=== PATIENT | female | born 1995 ===

== ENCOUNTER 2022-01-04 03:08 | Emergency (ER) | payer BC, SELFPAY ==
[2022-01-04] VITALS (7 sets, daily range): BP systolic 107–119; BP diastolic 75–82; PULSE 105–124; RESP 16–18; TEMP 36.2–36.7; O2SAT 99–100
--- NOTE | 2022-01-04 03:11 | ECG_ITS ---
Measurements Intervals [place] Rate: 124 P: 71 NH: 140 QRS: 58 QRSD: 96 T: 35 QT: 303 QTc: 435 Interpretive Statements SINUS TACHYCARDIA OTHERWISE NORMAL ECG NO PREVIOUS ECG AVAILABLE FOR COMPARISON Electronically Signed On 01-04-2022 10:24:53 CDT by Bassam Frederick M.D.
--- NOTE | 2022-01-04 03:16 | ED.ARRPALP ---
HPI - Arrhythmia/Palpitations General Chief Complaint: Chest Pain Stated Complaint: Fast Heart Rate Time Seen by Provider: 01/04/22 03:15 Source: patient, family and RN notes reviewed Mode of arrival: ambulatory Limitations: no limitations History of Present Illness HPI narrative: Mom states that she has been dealing with this all of her life intermittently. She has been on 2 different heart monitors at 2 different times. They never found anything abnormal. She is scheduled to see a e commerce solution architect. Recently she moved out on her own and patient states that she has noticed an increase in her episodes since then. She has some occasional chest pressure with this sometimes nausea, sometimes fatigue, sometimes mild shortness of breath. Nothing seems to make it better or worse they do not know why it comes on suddenly. MD complaint: rapid heart beat and heart racing Onset (ago): day(s) (2-3) Duration: intermittent Severity: moderate Context: occurred during rest Associated symptoms: chest pain (pressure), shortness of breath (mild) and nausea Related Data Home Medications Medication Instructions Recorded Confirmed montelukast 10 mg tablet 10 mg PO DAILY 01/04/22 01/04/22 norethindrone acetate 1.5 1 tablet PO DAILY 01/04/22 01/04/22 mg-ethinyl estradiol 30 mcg tablet (Krista) sertraline 100 mg tablet 100 mg PO DAILY 01/04/22 01/04/22 Allergies Allergy/AdvReac Type Severity Reaction Status Date / Time sulfamethoxazole Allergy Nausea Verified 01/04/22 03:46 [From Bactrim] trimethoprim [From Bactrim] Allergy Nausea Verified 01/04/22 03:46 Review of Systems Review of Systems: All systems reviewed & are unremarkable except as noted in HPI and below PMFSH Past Medical History Medical History (Updated 01/04/22 @ 04:33 by Spencer Goldstein MD) Tachycardia Surgical History Surgical History (Updated 01/04/22 @ 04:33 by Spencer Goldstein MD) No pertinent past surgical history Social History Social History (Updated 01/04/22 @ 04:16 by Spencer Goldstein MD) Smoking status: Never smoker Substance use: never Exam Const: General: healthy appearing, no acute distress and alert Nutritional Appearance: well nourished and thin Orientation/consciousness: patient oriented x3 Limitations: no limitations HENMT: Head: normal to inspection Ears: external ears normal Face/Nose/Sinus: Normal external nose present Face and sinus: normal facial exam Eyes: Conjunctivae: conjunctivae normal Pupils: Equal, round and reactive pupils present EOM: EOMs intact bilaterally Neck: Neck: normal visual inspection Resp: Effort & Inspection: normal respiratory effort Auscultation: clear to auscultation bilaterally Cardio: Rate: tachycardic Rhythm: regular rhythm Heart sounds: no murmurs GI: GI Palp: Yes Soft to palpation and No Tenderness to palpation present (GI) Auscultation: normal bowel sounds Back/Spine/Pelvis: Cervical Spine: cervical ROM normal Thoracic/Lumbar Spine: thoraco-lumbar ROM normal Skin: General skin exam: normal color Rashes: no rashes Neuro: General: patient oriented x3, moves all extremities, no focal motor deficits and CN's II-XI intact bilaterally Speech: normal speech Gait exam (Neuro): Normal gait present Extrem: General: normal to inspection and no clubbing, cyanosis or edema Psych: Mental Status: mental status grossly normal Affect: normal affect Attitude: cooperative Course Vital Signs Vital signs: Vital Signs Temperature 36.7 C 01/04/22 03:25 Pulse Rate 124 H 01/04/22 03:25 Respiratory Rate 18 01/04/22 03:25 Blood Pressure 119/81 01/04/22 03:25 Pulse Oximetry 100 01/04/22 03:25 Oxygen Delivery Room Air 01/04/22 03:25 Temperature 36.2 C L 01/04/22 04:20 Pulse Rate 105 H 01/04/22 04:20 Respiratory Rate 16 01/04/22 04:20 Blood Pressure 107/76 01/04/22 04:20 Pulse Oximetry 100 01/04/22 04:20 Oxygen Delivery Room Air 01/04/22 04:20
[2022-01-04 03:32] LABS: Basophils Absolute Auto 0.02 K/mm3 (0.00-0.10); Basophils Percent Auto 0.3 % (0.0-1.0); Eosinophils Absolute Auto 0.07 K/mm3 (0.02-0.50); Hematocrit 39.9 % (35.0-49.0); Immature Granulocyte Absolute 0.02 K/mm3 (0.00-0.00); Immature Granulocyte Percent A 0.3 % (0.0-0.0); Lymphocytes Absolute Auto 1.01 K/mm3 (1.10-4.50); Lymphocytes Percent Auto 14.3 % (18.0-42.0); Mean Corpuscular HGB Conc 35.1 g/dL (32.0-36.0); Mean Corpuscular Hemoglobin 32.6 pg (27.0-31.0); Mean Platelet Volume 10.7 fl (9.2-11.8); Monocytes Absolute Auto 0.41 K/mm3 (0.10-0.90); Monocytes Percent Auto 5.8 % (2.0-11.0); Neutrophils Absolute Auto 5.5 K/mm3 (1.7-7.2); Neutrophils Percent Auto 78.3 % (50.0-70.0); Platelet Count Result 207 K/mm3 (150-420); Red Blood Count 4.29 M/mm3 (4.20-5.40); White Blood Count 7.1 K/mm3 (4.8-10.8)
[2022-01-04] MEDS: METOPROLOL SUCCINATE EXT REL 25 MG TABCR PO (03:40)
[2022-01-04] MEDS: METOPROLOL TARTRATE 50 MG TAB (03:40)
[2022-01-04 03:42] LABS: Appearance Urine Clear (Clear); Bilirubin Urine 1+ (Negative); Glucose Urine UA Negative (Negative); Ketones Urine 3+ (Negative); Leukocyte Esterase Ur Negative LEU/UL (Negative); Nitrate Urine Negative (Negative); Protein Urine Negative (Negative); Specific Grav Ur 1.025 (1.010-1.020); Urobilinogen Urine 0.2 mg/dL (0.2-1.0)
[2022-01-04 03:45] LABS: Prothrombin Time 10.9 Seconds (9.50-12.10)
[2022-01-04 03:48] LABS: Color Urine Light Yellow (Yellow)
[2022-01-04 03:49] LABS: Add Urine Microscopic? YES; Bacteria Urine Trace /hpf; Blood Urine Trace-Intact (Negative); Mucus Urine Few /lpf; RBC Urine 0-2 /hpf (0-2); Squamous Epithelial Cell Urine Few /hpf (Few); WBC Urine 0-3 /hpf (0-3)
[2022-01-04 03:50] LABS: Amphetamine Screen Urine Negative (Negative); Barbiturate Screen Urine Negative (Negative); Benzodiazepines Screen Urine Negative (Negative); Cannabinoid Screen Urine Negative (Negative); Cocaine Screen Urine Negative (Negative); Methadone Screen Urine Negative (Negative); Opiate Screen Urine Negative (Negative); Phencyclidine Screen Urine Negative (Negative)
[2022-01-04 03:57] LABS: Alanine Aminotransferase 18 U/L (14-59); Albumin Level 4.2 g/dL (3.4-5.0); Alkaline Phosphatase 68 U/L (46-116); Anion Gap 13 mmol/L (8-16); Aspartate Amino Transferase 18 U/L (15-37); Bilirubin,Total 0.4 mg/dL (0.00-1.00); Blood Urea Nitrogen 7 mg/dL (7-18); Calcium 8.9 mg/dL (8.5-10.1); Carbon Dioxide 23 mmol/L (21-32); Chloride 104 mmol/L (98-108); Estimated CRCL calculation 82 ml/min; Estimated Glomerular Filt Rate > 60; Glucose 105 mg/dL (70-99); Osmolality Calculated 288 mOsm/kg (285-295); Potassium 3.9 mmol/L (3.5-5.1); Sodium 140 mmol/L (136-145); Thyroid Stimulating Hormone 3.69 uIU/mL (0.36-3.74); Total Protein 7.5 g/dL (6.4-8.2)
[2022-01-04 03:58] LABS: Troponin I < 4.0 ng/L (0.00-60.4)
== END 2022-01-04 04:22 | disposition home or self-care (01) ==
PROVIDERS: Emergency Provider Emergency Medicine; PCP Family Medicine
DX: R00.0 Tachycardia, unspecified (principal)
CPT/HCPCS: 36415; 80053; 80307; 81001; 84443; 84484; 85025; 85610; 93005; 99284; A9270